=== PATIENT | female | born 1940 | race Caucasian/White ===

== ENCOUNTER 2018-03-26 07:10 | Outpatient (CLI) | payer OTHER ==
[~2018-03-26 07:10] MED LIST: PULMICORT180 MCG/AE; SINGULAIR10 MG
== END 2018-03-26 07:12 | disposition home or self-care (01) ==
LOC: SONOGRAMA 07:10
DX: E04.2 Nontoxic multinodular goiter (principal)

== ENCOUNTER → 2020-05-30 | Emergency (ER) | payer OTHER ==
[~2020-05-30] VITALS: Ht 160 cm; Wt 59.0 kg
== END | disposition left against medical advice (07) ==
LOC: ER 15:15
DX: Z53.21 Procedure and treatment not carried out due to patient leaving prior to being seen by health care provider (principal)

== ENCOUNTER 2021-11-08 11:08 | Outpatient (CLI) | payer OTHER | END 2021-11-08 11:11 | disposition home or self-care (01) | LOC: SONOGRAMA 11:08 | PROVIDERS: ATTEND Pathology Anatomic Pathology & Clinical Pathology | DX: D34 Benign neoplasm of thyroid gland (principal); E04.9 Nontoxic goiter, unspecified; E04.1 Nontoxic single thyroid nodule ==